=== PATIENT | male | born 1950 | race Caucasian/White ===

== ENCOUNTER 2017-03-29 21:46 | Inpatient (IN) | payer MEDICARE, OTHER ==
[~2017-03-29] VITALS: Ht 165.1 cm; Wt 96.6 kg
[~2017-03-29 21:46] MED LIST: BP MED; INSU100V28 IJ; [UNRECOGNIZED DRUG - OTHER]
[2017-03-29 22:17] LABS: BASOPHILS # (AUTO) 0.1 /CMM (0.0-0.2); BASOPHILS % (AUTO) 0.6 % (0.0-2.0); EOSINOPHILS # (AUTO) 0.1 /CMM (0.0-0.7); EOSINOPHILS % (AUTO) 1.1 % (0.0-6.0); HEMATOCRIT 40 % (39-51); HEMOGLOBIN 13.7 g/dL (13.5-17.5); LYMPHOCYTES # (AUTO) 3.9 /CMM (0.8-4.8); LYMPHOCYTES % (AUTO) 42.2 % (20.0-44.0); MEAN CORPUSCULAR HEMOGLOBIN 32 PG (26.0-33.0); MEAN CORPUSCULAR HGB CONC 35 g/dl (31.0-36.0); MEAN CORPUSCULAR VOLUME 91 fL (80-96); MONOCYTES # (AUTO) 0.4 /CMM (0.1-1.30); MONOCYTES % (AUTO) 4.7 % (2.0-12.0); NEUTROPHILS # (AUTO) 4.7 /CMM (1.8-8.9); NEUTROPHILS % (AUTO) 51.4 % (43.0-81.0); PLATELET COUNT (AUTO) 179 /CMM (150-450); RDW COEFFICIENT OF VARIATION 12.8 (11.5-15.0); RED BLOOD CELL COUNT(AUTO) 4.36 MIL/uL (4.5-6.0); WHITE BLOOD COUNT (AUTO) 9.1 K/uL (4.3-11.0)
[2017-03-29 22:29] LABS: CALCIUM, SERUM 8.7 mg/dL (8.5-10.1); CARBON DIOXIDE 26 mmol/L (21-32); CHLORIDE 106 mmol/L (98-107); CREATININE 1.1 mg/dL (0.6-1.3); GLUCOSE 128 mg/dL (74-106); POTASSIUM 4.1 mmol/L (3.5-5.1); SODIUM SERUM 141 mmol/L (136-145); UREA NITROGEN, BLOOD 24 mg/dL (7-18)
[2017-03-29 22:34] LABS: TROPONIN I < 0.017 ng/mL (0.00-0.056)
[2017-03-29 22:35] LABS: ALANINE AMINOTRANSFERASE 41 U/L (12-78); ALBUMIN 3.9 g/dL (3.4-5.0); ALKALINE PHOSPHATASE 86 U/L (46-116); ASPARTATE AMINOTRANSFERASE 22 U/L (15-37); BILIRUBIN,DIRECT 0.1 mg/dL (0.0-0.2); BILIRUBIN,TOTAL 0.3 mg/dL (0.2-1.0); TOTAL PROTEIN, SERUM 7.3 g/dL (6.4-8.2)
[2017-03-29 22:40] LABS: INR 0.94 (0.87-1.13)
[2017-03-30 00:05] VITALS: BP 129/63
[2017-03-30 01:00] VITALS: BP 129/63
[2017-03-30 03:02] LABS: THYROID STIMULATING HORMONE 2.046 uIU/mL (0.358-3.74)
[2017-03-30 08:00] VITALS: BP 141/79
[2017-03-30] MEDS ORDERED: ICOS1CAP PO (08:50)
[2017-03-30] MEDS ORDERED: ARIP5TAB4 PO (08:50)
[2017-03-30] MEDS ORDERED: LURA40TA PO (08:50)
[2017-03-30] MEDS ORDERED: OMEP20TA68 PO (08:50)
[2017-03-30] MEDS ORDERED: LOSA25TA13 PO (08:50)
[2017-03-30] MEDS ORDERED: DEXL60CA3 PO (08:50)
[2017-03-30] MEDS ORDERED: LINA145C PO (08:50)
[2017-03-30] MEDS ORDERED: ALPR0.5T8 PO (08:50)
[2017-03-30] MEDS ORDERED: LINA5TAB PO (08:50)
[2017-03-30] MEDS ORDERED: DULO60CA45 PO (08:50)
[2017-03-30 09:11] LABS: CHOLESTEROL 182 mg/dL (<200); HDL CHOLESTEROL 33 mg/dL (40-60); LDL 110 mg/dL (0-99); TRIGLYCERIDES 284 mg/dL (30-150)
[2017-03-30 12:00] VITALS: BP 100/50
[2017-03-30 16:00] VITALS: BP 127/67
== END 2017-03-30 18:00 | disposition left against medical advice (07) | DRG 69 ==
LOC: ER 21:50 → TELE 23:22
DX: I67.82 Cerebral ischemia (principal); E11.65 Type 2 diabetes mellitus with hyperglycemia; I10 Essential (primary) hypertension; F17.210 Nicotine dependence, cigarettes, uncomplicated; E78.1 Pure hyperglyceridemia; R07.9 Chest pain, unspecified
CPT/HCPCS: 36415; 70450-TC; 70553-TC; 71010-TC; 80048-TC; 80061-TC; 80076-TC; 80305; 82962-TC; 83880; 84443-TC; 84484-TC; 85025-TC; 85652-TC; 85730-TC; 87081-TC; 92611-TC; 93307-TC; 93880-TC; 97001-TC; A4606; A9579; J1815; J7050; Q9967; Z7610